=== PATIENT | male | born 1940 | race Caucasian/White ===

== ENCOUNTER 2016-10-15 08:11 | Day surgery (SDC) | payer MEDICARE, BC ==
--- NOTE | ~2016-10-15 | OP ---
Record Of Operation [facility] [address] [place]. [address] NAME: MONA DIAZ : 38 STATUS : [facility]#: [id number] AGE: 75 ADM/REG DATE : 10/15/16 MR#: [id number] REPORT SERV DATE: 10/16/16 DICTATED BY: RAYRAY JACK DATE: 10/16/16 REPORT STATUS : Draft TRANSCRIBED BY: MODL DATE: 10/16/16 DATE OF PROCEDURE: 10/15/2016 PREOPERATIVE DIAGNOSIS: Left inguinal hernia. POSTOPERATIVE DIAGNOSIS: Left inguinal hernia. OPERATION PERFORMED: Open left inguinal hernia repair (indirect). SURGEON: Rayray Jack M.D. ANESTHESIA: General. ESTIMATED BLOOD LOSS: Less than 5 mL. IV FLUIDS: Adequate. INDICATION FOR PROCEDURE: Mr. Diaz is a very pleasant 75-year-old gentleman with a history of previous pelvic radiation. He has developed a symptomatic left inguinal hernia. He is brought to the operating room for repair. DESCRIPTION OF OPERATION: After appropriate sedation, the patient was prepped and draped in proper sterile fashion. We infiltrated the skin and subcutaneous tissues around the left groin using 0.5% Marcaine. A limited incision was made in the left groin. Subcutaneous tissues were incised through Watson's fascia down to the external oblique. A small nabila was made in the external oblique fascia. This was taken down to the external ring. We then developed flaps superiorly and inferiorly as well as laterally. The spermatic cord was dissected out. There was a thickened hernia sac coming along the spermatic cord. This was dissected out and highly ligated using a 2-0 Vicryl suture. There was no evidence of a direct inguinal hernia. A piece of Ultrapro mesh was placed on the inguinal floor. It was sutured to the pubic tubercle using 2-0 Nurolon suture. We then continued along the shelving edge inferiorly using 2-0 Nurolon suture in an interrupted fashion. A slit was cut on the inferior aspect of the mesh and then we reapproximated this slit along the shelving edge as well as closed the defect partially reconstructing the internal ring. We then placed several sutures along the conjoined tendon superiorly using 2-0 Nurolon suture. This gave us good coverage of the inguinal floor. We injected more Marcaine in this area as well as underneath the external oblique fascia. The fascia was closed using a running 2-0 Vicryl suture. The Watson's fascia was approximated using 3-0 Vicryl suture. The skin was closed using interrupted 3-0 Vicryl suture. Steri-Strips and dressings were then placed. The patient was taken to the recovery room in satisfactory condition. MARLEE/RADHA Rayray Record Of [facility] [address] [place]. [address] NAME: MONA DIAZ : 38 STATUS : [facility]#: [id number] AGE: 75 ADM/REG DATE : 10/15/16 MR#: [id number] REPORT SERV DATE: 10/16/16 DICTATED BY: RAYRAY JACK DATE: 10/16/16 REPORT STATUS : Draft TRANSCRIBED BY: RADHA DATE: 10/16/16 Carlitos Jack / [id number] CC: Carlitos Patel M.D.
[~2016-10-15 08:11] MED LIST: AMARYL4 PO; ASA5GR PO; ASAB PO; CRESTOR10 PO; DIOVAN HCT160 MG/25 PO; FLAX SEED; GLUCOPHAGE1000 MG PO; GLUCPH PO; IND25 PO; MULTIPLE VIT PO; NOR50 PO; PLAVIX PO; SKELAXIN8 PO; SUPER B COMP OR; TRICOR145 PO; VITE PO; [UNRECOGNIZED DRUG - OTHER] OR
[2016-11-14] MEDS ORDERED: AMARYL4 PO (19:07)
[2016-11-14] MEDS ORDERED: GLUCPH PO (19:07)
[2016-11-14] MEDS ORDERED: GLUCOPHAGE1000 MG PO (19:07)
[2016-11-14] MEDS ORDERED: VITAMIN E OTC PO (19:08)
[2016-11-14] MEDS ORDERED: FLAXSEED OIL PO (19:08)
[2016-11-14] MEDS ORDERED: HALF81 PO (19:08)
[2016-11-14] MEDS ORDERED: PLAVIX PO (19:08)
[2016-11-14] MEDS ORDERED: TEARS PURE OPH (19:09)
[2017-01-24] MEDS ORDERED: DEMA20 PO (14:04)
[2017-01-24] MEDS ORDERED: I10 (14:04)
[2017-01-24] MEDS ORDERED: SPIRO50 PO (14:05)
[2017-01-24] MEDS ORDERED: URSO FORTE500 MG PO (14:06)
[2017-01-24] MEDS ORDERED: GENERLAC PO (14:06)
== END 2016-10-15 15:47 | disposition home or self-care (01) ==
LOC: SDC 08:11
PROVIDERS: Specialist
PROC: 0YU60JZ Supplement Left Inguinal Region with Synthetic Substitute, Open Approach (ICD-10-PCS; principal; 2016-10-15 10:15)
DX: K40.90 Unilateral inguinal hernia, without obstruction or gangrene, not specified as recurrent (principal); E11.9 Type 2 diabetes mellitus without complications; I48.92 Unspecified atrial flutter; G47.33 Obstructive sleep apnea (adult) (pediatric); D64.9 Anemia, unspecified; K21.9 Gastro-esophageal reflux disease without esophagitis; Z99.81 Dependence on supplemental oxygen; Z98.890 Other specified postprocedural states
CPT/HCPCS: 80048; 82962; 85025; 88302; 88341; 88342; 93005; A9270-GY; C1781; J0690; J2405; J2710; J3010